=== PATIENT | female | born 1985 | race Caucasian/White ===

== ENCOUNTER 2017-04-04 14:56 | Emergency (ER) | payer OTHER | END 2017-04-04 17:40 | disposition home or self-care (01) | LOC: ER 14:56 | DX: R60.0 Localized edema (principal); F41.9 Anxiety disorder, unspecified; F17.210 Nicotine dependence, cigarettes, uncomplicated; Z88.0 Allergy status to penicillin; Z90.721 Acquired absence of ovaries, unilateral | CPT/HCPCS: 36415 ==